=== PATIENT | male | born 1965 | race Caucasian/White ===

== ENCOUNTER → 2016-07-24 | Outpatient (CLI) | payer BC ==
--- NOTE | 2016-07-24 08:56 | CT ---
EXAMINATION TYPE: CT chest w con DATE OF EXAM: 07/24/2016 7:18 AM COMPARISON: NONE HISTORY: 50-year-old male Chest pain TECHNIQUE: Contiguous axial scanning of the chest after the administration of 100 ml mL of Omnipaque 300. Coronal/sagittal reconstructions performed. CT DLP: 346.90mGycm. Automatic exposure control utilized for a dose reduction. FINDINGS: The heart is normal size without pericardial effusion. Aorta is normal caliber with a conventional large vessel branching anatomy. No thoracic lymphadenopathy by CT size criteria. Evaluation of the lung shows mild dependent atelectasis no consolidation or pleural effusion. Visualized upper abdomen shows a small hiatal hernia. Bones: Mild degenerative disc disease throughout the thoracic spine. No osseous destructive process. IMPRESSION: No acute pulmonary process. Small hiatal hernia.
== END | disposition home or self-care (01) ==
LOC: RADCTMAIN 06:34
PROVIDERS: ATTEND Family Medicine
DX: R07.9 Chest pain, unspecified (principal); K44.9 Diaphragmatic hernia without obstruction or gangrene
CPT/HCPCS: 71260; Q9967

== ENCOUNTER 2017-03-07 13:06 | Inpatient (IN) | payer BC ==
[2017-03-07] MEDS ORDERED: ONDANSETRON 4 MG/2 ML VIAL IVP STA (14:11)
[2017-03-07] MEDS ORDERED: DIAZEPAM 5 MG/ML 2 ML INJ IVP STA (14:11)
[2017-03-07] MEDS ORDERED: MECLIZINE 12.5 MG TAB PO STA (14:11)
[2017-03-07] MEDS ORDERED: RX INFO: IV CONTRAST WAS GIVEN 1 EACH MISC MISCELLANE PRN (14:13)
[2017-03-07 14:49] LABS: Basophils % (A) 1 %; CH 30.9; CHCM 33.9; Eosinophils # (A) 0.1 k/uL (0-0.7); Eosinophils % (A) 3 %; HDW 2.38; HGB 16.5 gm/dL (13.0-17.5); Luc # (Auto) 0.12; Luc % (Auto) 2; Lymphocytes % (A) 20 %; MCH 30.6 pg (25.0-35.0); MCHC 33.6 g/dL (31.0-37.0); MCV 91.3 fL (80.0-100.0); Mean Platelet Volume 7.7; Monocytes # (A) 0.4 k/uL (0-1.0); Monocytes % (A) 7 %; Neutrophils # (A) 3.4 k/uL (1.3-7.7); Neutrophils % (A) 68 %; RBC 5.37 m/uL (4.30-5.90); RDW 12.9 % (11.5-15.5)
[2017-03-07 15:02] LABS: Anion Gap 14 mmol/L; Blood Urea Nitrogen 10 mg/dL (9-20); Calcium 9.2 mg/dL (8.4-10.2); Carbon Dioxide 21 mmol/L (22-30); Chloride 105 mmol/L (98-107); Glucose 87 mg/dL (74-99); Non-African American GFR(MDRD) >60 (>60 ml/min/1.73 sqM); Potassium 3.9 mmol/L (3.5-5.1); Sodium 140 mmol/L (137-145)
--- NOTE | 2017-03-07 15:02 | ED ---
General Adult HPI - General Chief complaint: Dizziness Stated complaint: Dizziness/Can't hear Time Seen by Provider: 03/07/17 13:28 Source: patient, RN notes reviewed, old records reviewed Mode of arrival: wheelchair Limitations: no limitations - History of Present Illness Initial comments: 51-year-old female male presents emergency Department chief complaint of hearing loss and dizziness. Patient reports that he's been diagnosed with Mni re's disease. He reports severe the bilateral ears. He reports his become acutely worse over the past few days, and his dizziness will not subside with Antivert. Patient reports he is supposed to follow-up with the ENT specialist in [facility]. Status post to be scheduled on March 29, but is becoming progressively worsening Freddy he he cannot wait that long. Patient states that originally the hearing loss was started in the right ear, but now is progressing to the left ear. He reports that he is having to lip read in order to be able to communicate with people.Patient denies any recent fever, chills, shortness of breath, chest pain, back pain, abdominal pain, nausea vomiting, numbness or tingling, dysuria or hematuria, constipation or diarrhea, headaches or visual changes, or any other current symptoms - Related Data Home Medications Medication Instructions Recorded Confirmed Dextroamphetamine/Amphetamine 20 mg PO BID 03/07/17 03/07/17 [Adderall] Montelukast [Singulair] 10 mg PO DAILY 03/07/17 03/07/17 Allergies Allergy/AdvReac Type Severity Reaction Status Date / Time No Known Allergies Allergy Verified 03/07/17 14:08 Review of Systems ROS Statement: Those systems with pertinent positive or pertinent negative responses have been documented in the HPI. ROS Other: All systems not noted in ROS Statement are negative. Past Medical History Past Medical History: No Reported History History of Any Multi-Drug Resistant Organisms: None Reported Past Surgical History: No Surgical Hx Reported Past Psychological History: No Psychological Hx Reported Smoking Status: Never smoker Past Alcohol Use History: Occasional Past Drug Use History: None Reported General Exam - General Exam Comments Initial Comments: 51-year-old male. Patient does not appear to be in any acute distress. Limitations: no limitations General appearance: alert, in no apparent distress Head exam: Present: atraumatic, normocephalic, normal inspection Eye exam: Present: normal appearance, PERRL, EOMI. Absent: scleral icterus, conjunctival injection, periorbital swelling ENT exam: Present: normal exam, normal oropharynx, mucous membranes moist, TM's normal bilaterally, other ( is lateral nystagmus with left -sided gaze.) Expanded Ear exam: Present: normal external inspection Mouth exam: Present: normal external inspection Teeth exam: Present: normal inspection Throat exam: normal inspection, tonsillar erythema Neck exam: Present: normal inspection. Absent: tenderness, meningismus, lymphadenopathy Respiratory exam: Present: normal lung sounds bilaterally. Absent: respiratory distress, wheezes, rales, rhonchi, stridor Cardiovascular Exam: Present: regular rate, normal rhythm, normal heart sounds. Absent: systolic murmur, diastolic murmur, rubs, gallop, clicks GI/Abdominal exam: Present: soft, normal bowel sounds. Absent: distended, tenderness, guarding, rebound, rigid Extremities exam: Present: normal inspection, full ROM, normal capillary refill. Absent: tenderness, pedal edema, joint swelling, calf tenderness Back exam: Present: normal inspection Neurological exam: Present: alert, oriented X3, CN II-XII intact Psychiatric exam: Present: normal affect, normal mood Skin exam: Present: warm, dry, intact, normal color. Absent: rash Course Vital Signs 03/07/17 03/07/17 13:12 15:55 Temperature 97.9 F Pulse Rate 76 74 Respiratory 18 16 Rate Blood Pressure 133/77 141/63 O2 Sat by Pulse 97 Oximetry Medical Decision Making - Medical Decision Making 51-year-old male presents with dizziness and and sudden hearing loss. Apparently the hearing loss has been present with past 3 weeks. The dizziness is some increasingly worse. Not managed with Antivert. at this time patient's CBC and BMP are within normal limits. State T brain without contrast shows no acute abnormalities. Patient continues to complain of dizziness like symptoms. He does have an appointment with an ENT specialist on March 29 patient felt like he could not wait until that time. He does not complain of any headache. Patient cases of with Dr. Aguilar. Do suspect an acoustic neuroma given the tinnitus, sudden hearing loss 3 weeks ago and profound dizziness. Patient has to lip read in order to be able to communicate. Patient will be admitted at this time for further evaluation including an MRI of the brain. Consult to neurology. Case discussed by Dr. Aguilar to Dr. Alvarenga. - Lab Data Result diagrams: 03/07/17 14:33 03/07/17 14:33 Lab Results 03/07/17 03/07/17 Range/Units 14:33 14:33 WBC 5.0 (3.8-10.6) k/uL RBC 5.37 (4.30-5.90) m/uL Hgb 16.5 (13.0-17.5) gm/dL Hct 49.0 (39.0-53.0) % MCV 91.3 (80.0-100.0) fL MCH 30.6 (25.0-35.0) pg MCHC 33.6 (31.0-37.0) g/dL RDW 12.9 (11.5-15.5) % Plt Count 214 (150-450) k/uL Neutrophils % 68 % Lymphocytes % 20 % Monocytes % 7 % Eosinophils % 3 % Basophils % 1 % Neutrophils # 3.4 (1.3-7.7) k/uL Lymphocytes # 1.0 (1.0-4.8) k/uL Monocytes # 0.4 (0-1.0) k/uL Eosinophils # 0.1 (0-0.7) k/uL Basophils # 0.0 (0-0.2) k/uL Sodium 140 (137-145) mmol/L Potassium 3.9 (3.5-5.1) mmol/L Chloride 105 (98-107) mmol/L Carbon Dioxide 21 L (22-30) mmol/L Anion Gap 14 mmol/L BUN 10 (9-20) mg/dL Creatinine 0.71 (0.66-1.25) mg/dL Est GFR (MDRD) Af Amer >60 (>60 ml/min/1.73 sqM) Est GFR (MDRD) Non-Af >60 (>60 ml/min/1.73 sqM) Glucose 87 (74-99) mg/dL Calcium 9.2 (8.4-10.2) mg/dL - Radiology Data Radiology results: report reviewed Negative head CT at exam. Disposition Clinical Impression: Vertigo, Nystagmus, Profound hearing loss of both ears Disposition: ADMITTED IP TO THIS [facility] Condition: Stable Referrals: Fan Lott MD [Primary Care Provider] - 1-2 days Time of Disposition: 16:26
[2017-03-07] MEDS ORDERED: SODIUM CHLORIDE 0.9% 1,000 ML IV ONE (15:11)
--- NOTE | 2017-03-07 15:39 | CT ---
EXAMINATION TYPE: CT brain wo/w con DATE OF EXAM: 03/07/2017 COMPARISON: NONE HISTORY: Dizziness and hearing loss CT DLP: 2144.6 mGycm Automated exposure control for dose reduction was used. CONTRAST: CT scan of the head is performed prior to and after administration 100 cc Omnipaque 350 IV contrast. FINDINGS: There is no abnormal enhancing mass or midline shift identified. The ventricles and sulci are within normal limits in size. The globes are intact and the visualized sinuses are clear. Ventricles and s ulci are age-appropriate. There is no abnormal enhancement. Mastoid air cells are well aerated. Aris rium is unremarkable. There is mild nasal septal deviation to the right. IMPRESSION: Negative contrast enhanced head CT exam.
[2017-03-07] MEDS ORDERED: ONDANSETRON 4 MG/2 ML VIAL IVP PRN (16:28)
[2017-03-07] MEDS ORDERED: IBUPROFEN 400 MG TAB PO PRN (16:28)
[2017-03-07] MEDS ORDERED: NALOXONE 0.4 MG/ML 1 ML VIAL IV PRN (16:28)
[2017-03-07] MEDS ORDERED: ACETAMINOPHEN TAB 325 MG TAB PO PRN (16:28)
[2017-03-07] MEDS ORDERED: LORazepam 2 MG/ML INJ IV PRN (16:28)
[2017-03-07] MEDS ORDERED: KETOROLAC 30 MG/ML 1 ML VIAL IVP PRN (16:28)
[2017-03-07] MEDS: SODIUM CHLORIDE 0.9% 1,000 ML IV SCH (16:35)
--- NOTE | 2017-03-07 22:37 | P.CNNES ---
History of Present Illness Consult date: 03/07/17 Reason for Consult: Patient with profound dizziness and hearing loss. History of Present Illness: This patient is a 51-year-old right-handed white male who came to the emergency room today with complaint of severe dizziness almost to the point of intractability as well as bilateral hearing loss. Patient states his symptoms have been progressing over the last 2 weeks. He has a known history of underlying Mnire's disease and does follow with a specialist in [place]. Apparently he was diagnosed about 2 years ago with this condition and uses Antivert when he has flareups. The patient states in the last 2 weeks he has had extreme intractable dizziness causing him to be very much off balance. He also has noted a significant decline in his hearing suddenly over the last 2 weeks. He is scheduled to see his ENT doctor only on March 29. Since his symptoms were worsening he came to the emergency room today for further evaluation. Patient states he has been able to keep up with his work routine and exercise programs but has noted a decline in the last 2 weeks. The patient states he has learned to manage in terms of his vertigo-like symptoms and ambulates very slowly. He has been experiencing increased nausea vomiting symptoms as well as some left-sided headache pain. He was seen in the emergency room by Dr. Aguilar. He was sent for a computed tomography scan of the brain with and without contrast which was reported negative contrast enhanced head CT. His hearing loss started mostly in the right ear but is now also affecting his left ear. He states at work he has to lipreading oftentimes as he is having worsening hearing loss. The patient denies any severe nausea vomiting symptoms at this time. We did review the computed tomography scan of the brain results with him in detail which came back negative for any acute changes. Patient is now admitted and neurology has been consulted for further evaluation and recommendations. Review of Systems Constitutional: Denies chills, Denies fever Eyes: denies blurred vision, denies pain Ears: bilateral: decreased hearing, tinnitus Ears, nose, mouth and throat: Denies headache, Denies sore throat Cardiovascular: Denies chest pain, Denies shortness of breath Respiratory: Denies cough Gastrointestinal: Denies abdominal pain, Denies diarrhea, Denies nausea, Denies vomiting Musculoskeletal: Denies myalgias Integumentary: Denies pruritus, Denies rash Neurological: Reports ataxia, Reports gait dysfunction, Reports lack of coordination, Reports vertigo, Denies numbness, Denies weakness Psychiatric: Denies anxiety, Denies depression Endocrine: Denies fatigue, Denies weight change Past Medical History Past Medical History: No Reported History History of Any Multi-Drug Resistant Organisms: None Reported Past Surgical History: No Surgical Hx Reported Additional Past Surgical History / Comment(s): hand surgeries, kidney stone removal Past Psychological History: No Psychological Hx Reported Smoking Status: Never smoker Past Alcohol Use History: Occasional Past Drug Use History: None Reported Medications and Allergies Home Medications Medication Instructions Recorded Confirmed Type Dextroamphetamine/Amphetamine 20 mg PO BID 03/07/17 03/07/17 History [Adderall] Montelukast [Singulair] 10 mg PO DAILY 03/07/17 03/07/17 History Allergies Allergy/AdvReac Type Severity Reaction Status Date / Time No Known Allergies Allergy Verified 03/07/17 14:08 Physical Examination - Vital Signs Vital Signs: Vital Signs Temp Pulse Pulse Resp BP BP Pulse Ox 03/07/17 18:05 97.3 F L 77 18 142/77 95 03/07/17 17:43 98.8 F 68 18 138/76 95 03/07/17 15:55 74 16 141/63 03/07/17 13:12 97.9 F 76 18 133/77 97 Intake and Output 03/07/17 03/07/17 03/07/17 06:59 14:59 22:59 Other: Weight 79.379 kg Patient Weight 03/08/17 06:59 Weight 79.379 kg - Constitutional General appearance: average body habitus, cooperative - EENT EENT: PERRL, mucous membranes moist - Respiratory Respiratory: lungs clear, normal breath sounds - Cardiovascular Cardiovascular: regular rate, normal S1, normal S2 Extremities: no peripheral edema bilaterally - Gastrointestinal Gastrointestinal: normoactive bowel sounds - Integumentary Integumentary: normal - Neurologic Cranial nerve examination: PERRL, EOMI, VFF, V1/V2/V3 grossly intact, face symmetric, intact gag reflex, intact corneal reflex, normal palatal elevation Speech examination: intact Sensorimotor examination: intact Detailed motor examination: grossly full strength in all extremities Motor examination - right side: 5/5: biceps, triceps, wrist flexion, wrist extension, produce manager, hip flexors, knee extensors, dorsiflexion, toe extension (EHL) , plantarflexion Motor examination - left side: 5/5: biceps, triceps, wrist flexion, wrist extension, produce manager, hip flexors, knee extensors, dorsiflexion, toe extension (EHL) , plantarflexion Detailed sensory examination: intact Reflex and gait examination: intact Reflexes: 1+: ankle, bicep, knee, tricep Cerebellar examination: dysmetria (There is slight dysmetria in the left lower extremity on [id number] testing.) - Musculoskeletal Musculoskeletal: no pain - Psychiatric Psychiatric: mood/affect appropriate, cooperative Results - Laboratory Findings CBC and BMP: 03/07/17 14:33 03/07/17 14:33 Abnormal Lab Findings: Abnormal Labs 03/07/17 14:33 Carbon Dioxide 21 L Assessment and Plan (1) Mnire's disease, active Current Visit: Yes Status: Acute SNOMED Code(s): 61786765 (2) Gait disturbance Current Visit: Yes Status: Acute SNOMED Code(s): 89940185 (3) Profound hearing loss of both ears Current Visit: Yes Status: Acute SNOMED Code(s): 36955090 (4) Vertigo Current Visit: Yes Status: Acute SNOMED Code(s): 972639712 Plan: This patient is a 51-year-old right-handed white male was admitted through the emergency room at [facility] today for evaluation of severe intractable vertigo and bilateral hearing loss. Patient has a known history of Mnire's disease which he states was diagnosed about 2 years ago. In the last 3 weeks he has noted profound hearing loss in both ears left greater than right. He has an appointment to see his ENT doctor on March 29. Apparently his symptoms worsen to the point that he came into the emergency room today for evaluation. He was seen in the ER by Dr. Aguilar. Computed tomography scan of the brain with and without contrast was performed and was negative. He was admitted to Hospital. His neurological examination at this time is nonfocal. His clinical history suggests worsening Mnire's disease. Doubt that he has acoustic neuroma but would suggest a MRI of the internal acoustic canal for further evaluation. We will obtain an ENT consultation for the patient as well. His overall prognosis at this time remains very guarded. We will continue to monitor his neurological status closely during this admission. Time with Patient: Greater than 30
[2017-03-07] MEDS: NON-FORMULARY DRUG (Dextroamphetamine/Amphetamine [Adderall] 20 MG) PO SCH (23:27)
[2017-03-08] MEDS: SODIUM CHLORIDE 0.9% 1,000 ML IV SCH ×2 (05:33→13:31)
[2017-03-08 07:38] VITALS: BP 117/67; PULSE 49; RESP 18; TEMP 96.9
--- NOTE | 2017-03-08 08:46 | MR ---
EXAMINATION TYPE: MR iac wo/w con DATE OF EXAM: 03/08/2017 COMPARISON: CT brain from yesterday HISTORY: Meniere's disease with worsening vertigo/hearing loss TECHNIQUE: Multiplanar, multisequence images of the brain and brainstem is performed without and with IV contras t, utilizing 7.5 mL intravenous Gadavist . Acoustic nerve disorder protocol. FINDINGS: Diffusion weighted images demonstrate no evidence of a recent infarct or other diffusion ab normality. There is no extra-axial fluid collection or significant white matter signal abnormality. The ventricular system and cisternal spaces are normal in size and appearance. The brain volume is age appropriate. Midline structures demonstrate normal morphology. The craniocervical junction appears within normal limits. The visualized sinuses are clear and the globes are intact bilaterally. No suspicious fluid signal is seen in mastoid air cells bilaterally. Vestibulocochlear complexes are symmetric and felt within normal limits. No suspicious enhancing cerebellopontine angle mass is ident ified bilaterally. IMPRESSION: No significant finding is seen to account for patient's symptoms of worsening vertigo and hearing loss.
[2017-03-08] MEDS: NON-FORMULARY DRUG (Dextroamphetamine/Amphetamine [Adderall] 20 MG) PO SCH (08:51)
[2017-03-08] MEDS ORDERED: PANTOPRAZOLE 40 MG/10 ML VIAL IV SCH (09:00)
[2017-03-08] MEDS ORDERED: MONTELUKAST 10 MG TAB PO SCH (09:00)
--- NOTE | 2017-03-08 22:53 | P.HPIM ---
History of Present Illness H&P Date: 03/08/17 Chief Complaint: Hearing loss and dizziness 51-year-old female male presents emergency Department chief complaint of hearing loss and dizziness. Patient reports that he's been diagnosed with Mni re's disease. He reports his become acutely worse over the past few days, and his dizziness will not subside with Antivert. Patient reports he is supposed to follow-up with the ENT specialist in [facility] scheduled on March 29 , but is becoming progressively worsening Freddy he he cannot wait that long. Patient states that originally the hearing loss was started in the right ear, but now is progressing to the left ear. He reports that he is having to lip read in order to be able to communicate with people.Patient denies any recent fever, chills, shortness of breath, chest pain, back pain, abdominal pain, nausea vomiting, numbness or tingling, dysuria or hematuria, constipation or diarrhea, headaches or visual changes, or any other current symptoms. Patient had CT head and MRI of the orbits face. Showed no acute changes. Review of Systems Constitutional: Patient denies any fever or chills . No generalized weakness or weight loss. Abdomen: Patient denied nausea vomiting and diarrhea and abdominal pain. Cardiovascular: Patient denies any chest pain or short of breath no palpitations. Respiratory: patient denied any cough is from production. No shortness of breath Neurologic: Hearing loss and dizziness. No headache. No weakness. Musculoskeletal: Patient denies any complaints of joint swelling or deformity. Skin: Negative Psychiatric: Negative Endocrine: No heat or cold intolerance. No recent weight gain. Genitourinary: No dysuria or hematuria. All other 14 point ROS negative except the above Past Medical History Past Medical History: No Reported History History of Any Multi-Drug Resistant Organisms: None Reported Past Surgical History: No Surgical Hx Reported Additional Past Surgical History / Comment(s): hand surgeries, kidney stone removal Past Psychological History: No Psychological Hx Reported Smoking Status: Never smoker Past Alcohol Use History: Occasional Past Drug Use History: None Reported Medications and Allergies Home Medications Medication Instructions Recorded Confirmed Type Dextroamphetamine/Amphetamine 20 mg PO BID 03/07/17 03/07/17 History [Adderall] Montelukast [Singulair] 10 mg PO DAILY 03/07/17 03/07/17 History Allergies Allergy/AdvReac Type Severity Reaction Status Date / Time No Known Allergies Allergy Verified 03/07/17 14:08 Physical Exam Vitals: Vital Signs Temp Pulse Pulse Resp BP BP Pulse Ox 03/08/17 07:00 96.9 F L 49 L 18 117/67 94 L 03/07/17 23:00 97.1 F L 62 16 122/68 93 L 03/07/17 18:05 97.3 F L 77 18 142/77 95 03/07/17 17:43 98.8 F 68 18 138/76 95 03/07/17 15:55 74 16 141/63 Intake and Output 03/07/17 03/08/17 03/08/17 22:59 06:59 14:59 Other: # Voids 1 2 2 PHYSICAL EXAMINATION: Patient is lying in the bed comfortably, no acute distress, awake alert and oriented.. HEENT: Normocephalic. Neck is supple. Pupils reactive. Nostrils clear. Oral cavity is moist. Ears reveal no drainage. Neck reveals no JVD, carotid bruits, or thyromegaly. CHEST EXAMINATION: Trachea is central. Symmetrical expansion. Lung mccall clear to auscultation and percussion. CARDIAC: Normal S1, S2 with no gallops. No murmurs ABDOMEN: Soft. Bowel sounds normal. No organomegaly. No abdominal bruits. Extremities: reveal no edema. No clubbing or cyanosis Neurologically awake, alert, oriented x3 with well-coordinated movements. Hearing loss left greater than right ear. No focal deficits noted Skin: No rash or skin lesions. Psychiatric: Operative. Nonsuicidal Musculoskeletal: No joint swelling or deformity. Normal range of motion. Results CBC & Chem 7: 03/07/17 14:33 03/07/17 14:33 Labs: Abnormal Lab Results - Last 24 Hours (Table) 03/07/17 Range/Units 14:33 Carbon Dioxide 21 L (22-30) mmol/L Thrombosis Risk Factor Assmnt - Choose All That Apply Each Factor Represents 1 point: Age 41-60 years Thrombosis Risk Factor Assessment Total Risk Factor Score: 1 Thrombosis Risk Factor Assessment Level: Low Risk Assessment and Plan Assessment: #1 hearing loss and dizziness. Likely due to worsening Mnire's disease. #2 rule out acoustic neuroma is unlikely #3 vertigo Plan: Patient is most likely having worsening Mnire's disease with hearing loss and dizziness and some ringing in the ear. Neurology has seen the patient. CT head showed no acute process MRI was ordered which did not show any acute changes suggestive of his symptoms. Patient was seen by ENT and recommends to follow-up as an outpatient.
--- NOTE | 2017-03-08 22:54 | P.DS ---
Providers Date of admission: 03/07/17 17:32 Expected date of discharge: 03/08/17 Attending physician: Anju Alvarenga Consults: 03/07/17 16:28 Consult Physician Stat Consulting Provider: Michaela Massey Consult Reason/Comments: Vertigo, Nystagmus, Acoustic Neuroma Do you want consulting provider notified?: Yes, Notify in am 03/08/17 08:00 Consult Physician Urgent Consulting Provider: Christiano Henry Consult Reason/Comments: Meniere's Disease and possible Acoustic Neuroma. Do you want consulting provider notified?: Yes Primary care physician: Fan Lott Hospital Course: Discharge diagnosis #1 hearing loss and dizziness. Likely due to worsening Mnire's disease. #2 ruled out acoustic neuroma. MRI negative #3 vertigo Hospital course Patient is most likely having worsening Mnire's disease with hearing loss and dizziness and some ringing in the ear. Neurology has seen the patient. CT head showed no acute process MRI was ordered which did not show any acute changes suggestive of his symptoms. Patient was seen by ENT and recommends to follow-up as an outpatient. Patient will be discharged home and to follow with ENT clinic is as an outpatient. Discharge physical examination was done Patient Condition at Discharge: Stable Plan - Discharge Summary New Discharge Prescriptions: Continue Montelukast [Singulair] 10 mg PO DAILY Dextroamphetamine/Amphetamine [Adderall] 20 mg PO BID Discharge Medication List Dextroamphetamine/Amphetamine [Adderall] 20 mg PO BID 03/07/17 [History] Montelukast [Singulair] 10 mg PO DAILY 03/07/17 [History] Follow up Appointment(s)/Referral(s): Fan Lott MD [Primary Care Provider] - 03/10/17 8:40 am Christiano Henry MD [STAFF PHYSICIAN] - 03/10/17 2:00 pm Patient Instructions/Handouts: Acoustic Neuroma (DC), Vertigo (DC) Discharge Disposition: HOME SELF-CARE
== END 2017-03-08 15:18 | disposition home or self-care (01) | DRG 149 ==
LOC: EC 13:06 → 4MS4W 17:32
PROVIDERS: ADMIT Internal Medicine; ATTEND Internal Medicine
DX: H81.03 Meniere's disease, bilateral (principal); H93.19 Tinnitus, unspecified ear; H91.93 Unspecified hearing loss, bilateral; Z79.899 Other long term (current) drug therapy; Z87.442 Personal history of urinary calculi
CPT/HCPCS: 36415; 70470; 70553; 80048; 85025; 96361; 96374; 96375; 99285

== ENCOUNTER 2019-04-06 12:38 | Emergency (ER) | payer BC ==
[2019-04-06 12:52] VITALS: RESP 18
[2019-04-06] MEDS ORDERED: SODIUM CHLORIDE 0.9% 1,000 ML IV STA (13:10)
[2019-04-06] MEDS ORDERED: ONDANSETRON 4 MG/2 ML VIAL IVP STA (13:25)
[2019-04-06] MEDS ORDERED: MORPHINE SULFATE 4 MG/ML SYRINGE IVP STA (13:25)
--- NOTE | 2019-04-06 13:28 | ED ---
General Adult HPI - General Chief complaint: Abdominal Pain Stated complaint: kidney stones Time Seen by Provider: 04/06/19 13:09 Source: patient, RN notes reviewed Mode of arrival: ambulatory Limitations: no limitations - History of Present Illness Initial comments: 53-year-old male presents to the emergency department for a chief complaint of left side and flank pain. This radiates into his left mid abdomen. States this started yesterday around 11 AM. States he saw his primary care provider and was diagnosed with a kidney stone. States he was told to come to the emergency department. States his pain has been constant. Denies any associated nausea vomiting. Denies any diarrhea. Denies fevers or chills. Denies dysuria.Patient has no other complaints at this time including shortness of breath, chest pain, nausea or vomiting, headache, or visual changes. - Related Data Home Medications Medication Instructions Recorded Confirmed Dextroamphetamine/Amphetamine 20 mg PO BID 03/07/17 03/07/17 [Adderall] Montelukast [Singulair] 10 mg PO DAILY 03/07/17 03/07/17 Previous Rx's Medication Instructions Recorded Ibuprofen [Motrin] 600 mg PO Q6HR PRN #20 tab 04/06/19 Allergies Allergy/AdvReac Type Severity Reaction Status Date / Time No Known Allergies Allergy Verified 04/06/19 12:52 Review of Systems ROS Statement: Those systems with pertinent positive or pertinent negative responses have been documented in the HPI. ROS Other: All systems not noted in ROS Statement are negative. Past Medical History Past Medical History: No Reported History Additional Past Medical History / Comment(s): kidney stones History of Any Multi-Drug Resistant Organisms: None Reported Past Surgical History: No Surgical Hx Reported Additional Past Surgical History / Comment(s): hand surgeries, kidney stone removal Past Psychological History: No Psychological Hx Reported Smoking Status: Never smoker Past Alcohol Use History: Occasional Past Drug Use History: None Reported General Exam Limitations: no limitations General appearance: alert, in no apparent distress Head exam: Present: atraumatic, normocephalic, normal inspection Eye exam: Present: normal appearance, PERRL, EOMI. Absent: scleral icterus, conjunctival injection, periorbital swelling ENT exam: Present: normal exam, mucous membranes moist Neck exam: Present: normal inspection, full ROM. Absent: tenderness, meningismus, lymphadenopathy Respiratory exam: Present: normal lung sounds bilaterally. Absent: respiratory distress, wheezes, rales, rhonchi, stridor Cardiovascular Exam: Present: regular rate, normal rhythm, normal heart sounds. Absent: systolic murmur, diastolic murmur, rubs, gallop, clicks GI/Abdominal exam: Present: soft, normal bowel sounds. Absent: distended, tenderness (Mild left upper and lower abdominal tenderness), guarding, rebound, rigid Back exam: Present: CVA tenderness (L). Absent: CVA tenderness (R) Neurological exam: Present: alert Course Vital Signs 04/06/19 12:50 Temperature 98.2 F Pulse Rate 53 L Respiratory 18 Rate Blood Pressure 134/71 O2 Sat by Pulse 97 Oximetry Medical Decision Making - Medical Decision Making CT abdomen and pelvis without contrast ordered outpatient today shows bilateral nephrolithiasis and medullary sponge kidney. There is no evident ureteral calculus. Diverticulosis. Physical exam and history of present illness as documented. Vitals are stable. CBC is unremarkable. CMP unremarkable as well. Urine does not show any significant abnormalities or evidence of infection. CT abdomen and pelvis without contrast was obtained outpatient. This was reviewed. Bilateral nephrolithiasis with possible medullary sponge kidney is evident. I'm not concerned for diverticulitis as patient did not have any evidence on CT and has no white blood cell count. Most the patient's pain is upper and flank in nature. Patient did have significant improvement with pain medication. I am al so going to give an additional dose of Toradol before discharge. Patient will follow up with primary care in 1-2 days. He will return here if he has any worsening symptoms. - Lab Data Result diagrams: 04/06/19 13:26 04/06/19 13:26 Lab Results 04/06/19 04/06/19 04/06/19 Range/Units 13:26 13:26 13:26 WBC 5.7 (3.8-10.6) k/uL RBC 4.95 (4.30-5.90) m/uL Hgb 15.8 (13.0-17.5) gm/dL Hct 45.7 (39.0-53.0) % MCV 92.3 (80.0-100.0) fL MCH 31.9 (25.0-35.0) pg MCHC 34.6 (31.0-37.0) g/dL RDW 12.8 (11.5-15.5) % Plt Count 226 (150-450) k/uL Neutrophils % 67 % Lymphocytes % 19 % Monocytes % 8 % Eosinophils % 3 % Basophils % 1 % Neutrophils # 3.8 (1.3-7.7) k/uL Lymphocytes # 1.1 (1.0-4.8) k/uL Monocytes # 0.4 (0-1.0) k/uL Eosinophils # 0.2 (0-0.7) k/uL Basophils # 0.1 (0-0.2) k/uL Sodium 140 (137-145) mmol/L Potassium 4.0 (3.5-5.1) mmol/L Chloride 108 H (98-107) mmol/L Carbon Dioxide 24 (22-30) mmol/L Anion Gap 8 mmol/L BUN 14 (9-20) mg/dL Creatinine 0.73 (0.66-1.25) mg/dL Est GFR (CKD-EPI)AfAm >90 (>60 ml/min/1.73 sqM) Est GFR (CKD-EPI)NonAf >90 (>60 ml/min/1.73 sqM) Glucose 82 (74-99) mg/dL Calcium 9.0 (8.4-10.2) mg/dL Total Bilirubin 1.5 H (0.2-1.3) mg/dL AST 23 (17-59) U/L ALT 29 (21-72) U/L Alkaline Phosphatase 66 (38-126) U/L Total Protein 6.8 (6.3-8.2) g/dL Albumin 3.9 (3.5-5.0) g/dL Amylase 121 H (30-110) U/L Lipase 114 (23-300) U/L Urine Color Yellow Urine Appearance Cloudy (Clear) Urine pH 7.0 (5.0-8.0) Ur Specific [place] 1.023 (1.001-1.035) Urine Protein 1+ H (Negative) Urine Glucose (UA) Negative (Negative) Urine Ketones Negative (Negative) Urine Blood Negative (Negative) Urine Nitrite Negative (Negative) Urine Bilirubin Negative (Negative) Urine Urobilinogen <2.0 (<2.0) mg/dL Ur Leukocyte Esterase Trace H (Negative) Urine RBC 1 (0-5) /hpf Urine WBC 5 (0-5) /hpf Ur Squamous Epith Cells <1 (0-4) /hpf Urine Mucus Few H (None) /hpf Disposition Clinical Impression: Renal colic on left side Disposition: HOME SELF-CARE Condition: Good Instructions (If sedation given, give patient instructions): Renal Colic (ED) Additional Instructions: Please take Motrin and Tylenol for pain. If pain is severe take Tylenol [address] operate machinery while taking this. He may take this every 8 hours as needed. Follow-up with urology by calling to schedule an appointment. Return to the emergency department if you have worsening symptoms. Prescriptions: Ibuprofen [Motrin] 600 mg PO Q6HR PRN #20 tab PRN Reason: Pain Is patient prescribed a controlled substance at d/c from ED?: No Referrals: Fan Lott MD [Primary Care Provider] - 1-2 days Patrick Davis MD [STAFF PHYSICIAN] - 1-2 days Time of Disposition: 14:51
[2019-04-06 14:08] LABS: Basophils # (A) 0.1 k/uL (0-0.2); Basophils % (A) 1 %; Eosinophils # (A) 0.2 k/uL (0-0.7); Eosinophils % (A) 3 %; HCT 45.7 % (39.0-53.0); HGB 15.8 gm/dL (13.0-17.5); Lymphocytes # (A) 1.1 k/uL (1.0-4.8); Lymphocytes % (A) 19 %; MCH 31.9 pg (25.0-35.0); MCHC 34.6 g/dL (31.0-37.0); MCV 92.3 fL (80.0-100.0); Mean Platelet Volume 6.8; Monocytes # (A) 0.4 k/uL (0-1.0); Monocytes % (A) 8 %; Neutrophils # (A) 3.8 k/uL (1.3-7.7); Neutrophils % (A) 67 %; Platelet Count 226 k/uL (150-450); RBC 4.95 m/uL (4.30-5.90); RDW 12.8 % (11.5-15.5); WBC 5.7 k/uL (3.8-10.6)
[2019-04-06 14:21] LABS: ALT 29 U/L (21-72); AST 23 U/L (17-59); African American GFR (CKD) >90 (>60 ml/min/1.73 sqM); Albumin 3.9 g/dL (3.5-5.0); Alkaline Phosphatase 66 U/L (38-126); Amylase 121 U/L (30-110); Anion Gap 8 mmol/L; Blood Urea Nitrogen 14 mg/dL (9-20); Carbon Dioxide 24 mmol/L (22-30); Chloride 108 mmol/L (98-107); Glucose 82 mg/dL (74-99); Non-African American GFR(CKD) >90 (>60 ml/min/1.73 sqM); Sodium 140 mmol/L (137-145); Total Bilirubin 1.5 mg/dL (0.2-1.3); Total Protein 6.8 g/dL (6.3-8.2)
[2019-04-06 14:26] LABS: Appearance,Urine Cloudy (Clear); Bilirubin,Urine Negative (Negative); Blood,Urine Negative (Negative); Color,Urine Yellow; Glucose,Urine (UA) Negative (Negative); Ketones,Urine Negative (Negative); Leukocyte Esterase,Urine Trace (Negative); Mucus,Urine Few /hpf; Nitrite,Urine Negative (Negative); Protein,Urine 1+ (Negative); RBC,Urine 1 /hpf (0-5); Specific Gravity,Urine 1.023 (1.001-1.035); Squamous Epithelial Cell,Urine <1 /hpf (0-4); Urobilinogen,Urine <2.0 mg/dL (<2.0)
[2019-04-06] MEDS ORDERED: KETOROLAC 30 MG/ML 1 ML VIAL IVP STA (14:45)
[2019-04-06] MEDS ORDERED: ACET/COD 300 MG/30 MG STARTER PACK 6 TAB BTL PO STA (14:51)
[2019-04-06 14:57] VITALS: BP 135/81; PULSE 50; TEMP 97.9
== END 2019-04-06 15:05 | disposition home or self-care (01) ==
LOC: EC 12:38
DX: N20.0 Calculus of kidney (principal); K57.90 Diverticulosis of intestine, part unspecified, without perforation or abscess without bleeding; Z79.899 Other long term (current) drug therapy; Z98.890 Other specified postprocedural states
CPT/HCPCS: 36415; 80053; 82150; 83690; 85025; 81001; 99284; 96374; 96375 ×2; 96361 ×2; J2270; J2405; J1885

== ENCOUNTER → 2019-04-06 | Outpatient (CLI) | payer BC ==
--- NOTE | 2019-04-06 11:29 | CT ---
EXAMINATION TYPE: CT abdomen pelvis wo con DATE OF EXAM: 04/06/2019 COMPARISON: Prior CT dated 07/28/2013 HISTORY: Left sided back pain, kidney stone CT DLP: 755 mGycm Automated exposure control for dose reduction was used. TECHNIQUE: Helical acquisition of images from the lung bases through the pelvis. FINDINGS: Lack of intravenous contrast could compromise sensitivity of the exam. LUNG BASES: There are basilar atelectatic changes. Small hiatal hernia noted incidentally. AORTA: No significant abnormality is appreciataed. LIVER/GB: No significant abnormality is appreciated. PANCREAS: No significant abnormality is seen. SPLEEN: No significant abnormality is seen. ADRENALS: No significant abnormality is seen. KIDNEYS: There are changes of medullary sponge kidney. Nonobstructive calculus present at the lower p ole right kidney measuring approximately 3 to 4 mm, similar-appearing calculus is present the lower p ole the left kidney REPRODUCTIVE ORGANS: Prostate is mildly enlarged with some associated calcification. URINARY BLADDER: Urinary bladder shows a thickened wall possibly due to chronic outlet obstruction, there is a focus of low-attenuation in the nondependent portion of the prostate, possibly fat density and stable compared to prior exam BOWEL: Diverticular changes associated with the colon. There is retained fecal debris throughout the distribution of the colon. No evident bowel obstruction. Appendix is within normal limits.. FREE AIR: No Free Air is visible. ASCITES: None visible. PELVIC ADENOPATHY: None visualized. RETROPERITONEAL ADENOPATHY: No Retroperitoneal Adenopathy visible. OSSEOUS STRUCTURES: No significant abnormality is seen. IMPRESSION: BILATERAL NEPHROLITHIASIS, MEDULLARY SPONGE KIDNEY. NO EVIDENT URETERAL CALCULUS. DIVERTICULOSIS. NON CONTRAST EXAM, ADDITIONAL FINDINGS ABOVE.
== END | disposition home or self-care (01) ==
LOC: RADCTMAIN 10:31
PROVIDERS: ATTEND Physician Assistant
DX: N20.0 Calculus of kidney (principal); K57.90 Diverticulosis of intestine, part unspecified, without perforation or abscess without bleeding
CPT/HCPCS: 74176

== ENCOUNTER 2020-03-07 12:46 | Emergency (ER) | payer BC, OTHER ==
[2020-03-07 12:52] VITALS: BP 125/81; PULSE 82; RESP 18; TEMP 97.9
[2020-03-07] MEDS ORDERED: IBUPROFEN 600 MG TAB PO STA (13:04)
--- NOTE | 2020-03-07 13:16 | ED ---
General Adult HPI - General Chief complaint: Back Pain/Injury Stated complaint: [facility] - broken ribs Time Seen by Provider: 03/07/20 12:55 Source: patient, RN notes reviewed Mode of arrival: ambulatory Limitations: no limitations - History of Present Illness Initial comments: This a 54-year-old male presents emergency Department chief complaint left-sided rib pain. 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 Patient states he has left-sided rib pain worse with movement and deep inspiration. She does not feel short of breath at rest. Patient states that the pain worsened throughout the day he did complete his day work. Patient states that he has no exact back pain no head injury no loss consciousness no neck pain. Patient states he does not taking for the pain does not want narcotic pain meds. - Related Data Home Medications Medication Instructions Recorded Confirmed Dextroamphetamine/Amphetamine 20 mg PO BID 03/07/17 03/07/17 [Adderall] Montelukast [Singulair] 10 mg PO DAILY 03/07/17 03/07/17 Previous Rx's Medication Instructions Recorded Ibuprofen [Motrin] 600 mg PO Q6HR PRN #20 tab 04/06/19 Ibuprofen [Motrin] 600 mg PO Q8HR PRN #20 tab 03/07/20 Allergies Allergy/AdvReac Type Severity Reaction Status Date / Time No Known Allergies Allergy Verified 03/07/20 12:52 Review of Systems ROS Statement: Those systems with pertinent positive or pertinent negative responses have been documented in the HPI. ROS Other: All systems not noted in ROS Statement are negative. Past Medical History Past Medical History: No Reported History Additional Past Medical History / Comment(s): kidney stones History of Any Multi-Drug Resistant Organisms: None Reported Past Surgical History: No Surgical Hx Reported Additional Past Surgical History / Comment(s): hand surgeries, kidney stone removal Past Psychological History: No Psychological Hx Reported Smoking Status: Never smoker Past Alcohol Use History: Occasional Past Drug Use History: None Reported General Exam Limitations: no limitations General appearance: alert, in no apparent distress Head exam: Present: atraumatic, normocephalic, normal inspection Eye exam: Present: normal appearance, PERRL, EOMI. Absent: scleral icterus, conjunctival injection, periorbital swelling Neck exam: Present: normal inspection, full ROM. Absent: tenderness, meningismus, lymphadenopathy Respiratory exam: Present: normal lung sounds bilaterally, chest wall tenderness (Moderate left sided anterior lateral). Absent: respiratory distress, wheezes, rales, rhonchi, stridor Cardiovascular Exam: Present: regular rate, normal rhythm, normal heart sounds. Absent: systolic murmur, diastolic murmur, rubs, gallop, clicks Neurological exam: Present: alert, oriented X3, CN II-XII intact, reflexes normal. Absent: motor sensory deficit Skin exam: Present: warm, dry, intact, normal color. Absent: rash Course Vital Signs 03/07/20 12:48 Temperature 97.9 F Pulse Rate 82 Respiratory 18 Rate Blood Pressure 125/81 O2 Sat by Pulse 97 Oximetry Medical Decision Making - Medical Decision Making 54-year-old presented for fall x-rays reviewed no acute fracture per radiology reading. No pneumothorax. Patient is left rib contusion possible nondisplaced identified fracture. Patient will be discharged on anti-inflammatories return parameters were discussed. Disposition Clinical Impression: Fall, Contusion of rib on left side Disposition: HOME SELF-CARE Condition: Stable Instructions (If sedation given, give patient instructions): Rib Contusion (ED) Additional Instructions: Please return to the Emergency Department if symptoms worsen or any other concerns. Prescriptions: Ibuprofen [Motrin] 600 mg PO Q8HR PRN #20 tab PRN Reason: Pain Is patient prescribed a controlled substance at d/c from ED?: No Referrals: Fan Lott MD [Primary Care Provider] - 1-2 days Time of Disposition: 13:32
--- NOTE | 2020-03-07 13:26 | XR ---
EXAMINATION TYPE: PA chest and left rib series, 5 views DATE OF EXAM: 03/07/2020 Comparison: 08/16/2013 Clinical History: 54-year-old male with pain after fall Findings: Heart normal size. Aorta and pulmonary vasculature within normal limits. Mild interstitial prominence is unchanged and appears chronic. No displaced left rib fracture. Moderate degenerative change at the left glenohumeral joint. Impression: Chronic changes without acute cardiopulmonary process. No displaced left rib fracture seen.
== END 2020-03-07 13:57 | disposition home or self-care (01) ==
LOC: EC 12:46
DX: S20.212A Contusion of left front wall of thorax, initial encounter (principal); Z79.899 Other long term (current) drug therapy; W01.0XXA Fall on same level from slipping, tripping and stumbling without subsequent striking against object, initial encounter; Y92.69 Other specified industrial and construction area as the place of occurrence of the external cause; Y99.0 Civilian activity done for income or pay
CPT/HCPCS: 99283

== ENCOUNTER → 2020-03-15 | Outpatient (CLI) | payer OTHER ==
--- NOTE | 2020-03-15 14:40 | XR ---
EXAMINATION TYPE: XR chest 2V, XR ribs LT DATE OF EXAM: 03/15/2020 COMPARISON: Chest and left-sided rib x-rays 8 days ago. HISTORY: Fall injury 8 days ago with persistent chest and left-sided rib pain. TECHNIQUE: Frontal and lateral views of the chest are obtained. A frontal and oblique images left-si ded ribs. FINDINGS: There is chronic parenchymal changes bilaterally without suspicious new focal air space op acity, pleural effusion, or pneumothorax seen. The cardiac silhouette size remains within normal padilla its. The osseous structures are intact. Dedicated images of the left-sided ribs show acute minimally displaced anterolateral left eighth rib fracture which I cannot clearly identify on prior study. The overlying soft tissue is unremarkable. IMPRESSION: 1. No acute pulmonary process. 2. Acute minimally displaced left anterolateral eighth rib fracture on current study which I cannot c learly see on prior study.
== END | disposition home or self-care (01) ==
LOC: RADXRMAIN 14:10
PROVIDERS: ATTEND Emergency Medicine
DX: S29.011D Strain of muscle and tendon of front wall of thorax, subsequent encounter (principal)
CPT/HCPCS: 71046

== ENCOUNTER → 2020-04-15 | Outpatient (CLI) | payer BC | END | disposition home or self-care (01) | LOC: LABWHC1 15:40 | PROVIDERS: ATTEND Family Medicine | DX: Z03.818 Encounter for observation for suspected exposure to other biological agents ruled out (principal) | CPT/HCPCS: U0003; C9803 ==

== ENCOUNTER → 2020-07-08 | Outpatient (CLI) | payer BC ==
--- NOTE | 2020-07-08 11:54 | EST ---
EXERCISE STRESS AGE: 54 SEX: M HT: 5'11" WT: 171 lbs. PROTOCOL: Exercise tolerance test STAGE: 5 DURATION OF EXERCISE: 12:30 HEART RATE REST: 74 BLOOD PRESSURE REST: 134/89 MAXIMUM HEART RATE ACHIEVED: 149 MAXIMUM BLOOD PRESSURE: 161/104 85% MPHR: 141 100% MPHR: 166 METS: 12.9 INDICATIONS: Hypertension CLINICAL INFORMATION: Baseline EKG shows sinus rhythm, normal axis, normal intervals with poor R-wave progression and nonspecific ST-T wave changes. Patient exercised on Landon protocol for a total of 12-1/2 minutes achieving 14 METS, 90% of predicted maximal heart rate without chest pain. At peak exercise there was [address]-segment depression noted in the inferolateral leads. CONCLUSIONS: 1. Excellent exercise tolerance. 2. Abnormal but inconclusive EKG part of the stress test due to baseline EKG abnormalities. 3. Consider stress imaging study if clinically indicated. MMODL / IJN: [id number] /
== END | disposition home or self-care (01) ==
LOC: RADNMMAIN 08:22
PROVIDERS: ATTEND Family Medicine
DX: R94.31 Abnormal electrocardiogram [ECG] [EKG] (principal); R03.0 Elevated blood-pressure reading, without diagnosis of hypertension
CPT/HCPCS: 93017

== ENCOUNTER 2022-05-04 09:14 | Day surgery (SDC) | payer BC ==
[2022-05-01 10:09] VITALS: BMI 25.1
--- NOTE | 2022-05-04 07:18 | P.GSHP ---
History of Present Illness H&P Date: 05/04/22 CHIEF COMPLAINT: Colon screen HISTORY OF PRESENT ILLNESS: The patient is a 56-year-old male who presents for colon screen. Lower endoscopy was offered for further evaluation and management. PAST MEDICAL HISTORY: Please see list. PAST SURGICAL HISTORY: Please see list. MEDICATIONS: Please see list. ALLERGIES: Please see list. SOCIAL HISTORY: No illicit drug use FAMILY HISTORY: No reports of Crohn disease or ulcerative colitis. REVIEW OF ORGAN SYSTEMS: CONSTITUTIONAL: No reports of fevers or chills. PHYSICAL EXAM: VITAL SIGNS: Stable GENERAL: Well-developed pleasant in no acute distress. HEENT: No scleral icterus. Extraocular movements grossly intact. Moist buccal mucosa. NECK: Supple without lymphadenopathy. CHEST: Unlabored respirations. Equal bilateral excursions. CARDIOVASCULAR: Regular rate and rhythm. Distal 2+ pulses. ABDOMEN: Soft, nontender, nondistended. MUSCULOSKELETAL: No clubbing, cyanosis, or edema. ASSESSMENT: 1. Colon screen. PLAN: 1. Recommend proceeding with a lower endoscopy Past Medical History Past Medical History: No Reported History Additional Past Medical History / Comment(s): kidney stones, right shoulder injury with possible biceps tear, seasonal allergies History of Any Multi-Drug Resistant Organisms: None Reported Past Surgical History: No Surgical Hx Reported Additional Past Surgical History / Comment(s): right hand surgeries, kidney stone removal, right toe surgey Past Anesthesia/Blood Transfusion Reactions: No Reported Reaction, Motion Sickness Smoking Status: Never smoker Medications and Allergies Home Medications Medication Instructions Recorded Confirmed Type Ibuprofen [Motrin] 600 mg PO Q6HR PRN #20 tab 04/06/19 05/01/22 Rx Allergies Allergy/AdvReac Type Severity Reaction Status Date / Time No Known Allergies Allergy Verified 05/01/22 10:02
[2022-05-04] MEDS ORDERED: LACTATED RINGERS 1,000 ML IV ONE (09:29)
[2022-05-04 09:37] VITALS: TEMP 97.3
[2022-05-04] MEDS ORDERED: LIDOCAINE 1% (10MG/ML) FOR IV START INTRADERMA PRN (09:37)
[2022-05-04] MEDS ORDERED: LACTATED RINGERS 1,000 ML IV SCH (09:37)
--- NOTE | 2022-05-04 10:41 | P.PCN ---
Date of Procedure: 05/04/22 Description of Procedure: PREOPERATIVE DIAGNOSIS: Colonoscopy screening POSTOPERATIVE DIAGNOSIS: Tubular adenoma transverse colon Sigmoid diverticulosis Internal hemorrhoids, grade 2 OPERATION: Colonoscopy to the ileocecal valve and appendiceal orifice, cecum Colonoscopy with cold forceps biopsy SURGEON: Acacia Miller MD. ANESTHESIA: MAC. INDICATIONS: The patient is an 56-year-old male who presents for colonoscopy screening. Benefits and risks were described and informed consent was obtained. DESCRIPTION OF PROCEDURE: The patient had undergone Sutab prep. The patient had been brought into the operating room and laid in the left lateral decubitus position. After adequate intravenous sedation, the rectum was examined with 2% lidocaine jelly. The prostate was unremarkable. External hemorrhoids were encountered. The rectal tone was within normal limits. No lesions were palpated in the rectal vault. An Olympus colonoscope was advanced until the cecum, ileocecal valve and appendiceal orifice were clearly viewed. The prep was excellent. No sigmoid diverticulosis was encountered. Colonic polyps were found and removed. No evidence of focal colitis was found. Retroflexion of the scope demonstrated grade 2 internal hemorrhoids without active bleeding or inflammation. The colon was desufflated. The patient had tolerated the procedure well. Withdrawal time was over 6 minutes. FINDINGS: Aronchick preparation quality scale 1 (1-5) Internal hemorrhoids, grade 2 External hemorrhoids, grade 2. No arteriovenous malformations. Sigmoid diverticulosis Removal of 2 polyps: - Cold forceps biopsy at mid transverse colon, 5 mm polyp. No focal colitis. RECOMMENDATIONS: Repeat colonoscopy , 2026 Plan - Discharge Summary New Discharge Prescriptions: Continue Ibuprofen [Motrin] 600 mg PO Q6HR PRN #20 tab PRN Reason: Pain Discharge Medication List Ibuprofen [Motrin] 600 mg PO Q6HR PRN #20 tab 04/06/19 [Rx] Follow up Appointment(s)/Referral(s): Acacia Miller MD [STAFF PHYSICIAN] - As Needed Patient Instructions/Handouts: Diverticulitis Diet (GEN), Diverticulosis (DC), Colorectal Polyps (GEN) Activity/Diet/Wound Care/Special Instructions: Repeat colonoscopy years, 2026 Discharge Disposition: HOME SELF-CARE
[2022-05-04 10:50] VITALS: BP 144/84; PULSE 54; RESP 16
== END 2022-05-04 11:11 | disposition home or self-care (01) ==
LOC: ORWHC2ENDO 09:14
PROVIDERS: ATTEND Surgery Plastic and Reconstructive Surgery
DX: Z12.11 Encounter for screening for malignant neoplasm of colon (principal); D12.3 Benign neoplasm of transverse colon; K57.30 Diverticulosis of large intestine without perforation or abscess without bleeding; K64.1 Second degree hemorrhoids; K64.4 Residual hemorrhoidal skin tags; Z87.442 Personal history of urinary calculi; Z79.1 Long term (current) use of non-steroidal anti-inflammatories (NSAID)
CPT/HCPCS: 45380; 88305

== ENCOUNTER 2024-02-24 16:44 | Observation (INO) | payer BC ==
[2024-02-24 17:13] LABS: Glucose,Whole Blood 80 mg/dL (70-110)
[2024-02-24 17:21] LABS: Basophils % (A) 1 %; Eosinophils # (A) 0.2 k/uL (0-0.7); Eosinophils % (A) 3 %; HCT 50.2 % (39.0-53.0); HGB 16.5 gm/dL (13.0-17.5); Lymphocytes # (A) 1.3 k/uL (1.0-4.8); Lymphocytes % (A) 24 %; MCH 30.4 pg (25.0-35.0); MCHC 32.8 g/dL (31.0-37.0); MCV 92.6 fL (80.0-100.0); Mean Platelet Volume 8.4; Monocytes # (A) 0.5 k/uL (0-1.0); Monocytes % (A) 9 %; Neutrophils # (A) 3.2 k/uL (1.3-7.7); Neutrophils % (A) 59 %; Platelet Count 216 k/uL (150-450); RBC 5.42 m/uL (4.30-5.90); WBC 5.4 k/uL (3.8-10.6)
--- NOTE | 2024-02-24 17:32 | CT ---
EXAMINATION TYPE: CODE STROKE: CT brain wo contr DATE OF EXAM: 02/24/2024 COMPARISON: 03/07/2017 HISTORY: 58-year-old male neurologic deficit, acute, cva suspected. TECHNIQUE: Examination was done in axial plane without intravenous contrast. Coronal and sagittal r econstructions performed. CT DLP: 1092.3 mGycm Automated exposure control for dose reduction was used. FINDINGS: There is no evidence of acute intracranial hemorrhage, acute ischemic changes, mass, mass-effect, or extra-axial fluid collection. There is no effacement of cerebral sulci or basal subarachnoid cister ns. There is no hydrocephalus. There is no midline shift. Toure-white matter distinction is preserv ed. Mild bifrontal cerebral cortical volume loss. Paranasal sinuses and mastoid air cells well pneumatized. Orbits and globes are intact. IMPRESSION: Mild bifrontal cerebral atrophy. No acute intracranial abnormality seen. [facility], , 02/24/2024 5:29 PM
[2024-02-24 17:42] LABS: ALT 28 U/L (4-49); AST 35 U/L (17-59); African American GFR (CKD) >90 (>60 ml/min/1.73 sqM); Albumin 4.6 g/dL (3.5-5.0); Alkaline Phosphatase 74 U/L (38-126); Anion Gap 6 mmol/L; Blood Urea Nitrogen 9 mg/dL (9-20); Calcium 9.3 mg/dL (8.4-10.2); Carbon Dioxide 27 mmol/L (22-30); Chloride 107 mmol/L (98-107); Creatine Kinase 139 U/L (55-170); Glucose 85 mg/dL (74-99); Non-African American GFR(CKD) >90 (>60 ml/min/1.73 sqM); Potassium 4.7 mmol/L (3.5-5.1); Sodium 140 mmol/L (137-145); Total Bilirubin 1.1 mg/dL (0.2-1.3); Total Protein 7.4 g/dL (6.3-8.2)
--- NOTE | 2024-02-24 17:44 | CT ---
EXAMINATION TYPE: CT angio head neck DATE OF EXAM: 02/24/2024 COMPARISON: CT brain same day HISTORY: 58-year-old male with neurologic deficit, acute, cva suspected. TECHNIQUE: Contiguous axial scanning of the head and neck performed with IV Contrast, patient injecte d with 65 mL of Isovue 370. Coronal/sagittal reconstructions performed. 3-D reconstructions generated on a dedicated workstation. CT DLP: 437.4 mGycm Automated exposure control for dose reduction was used. FINDINGS: NECK: Conventional arch was a branching anatomy. The vertebral arteries are codominant and patent throughout the course. The bilateral common bilateral internal carotid arteries are widely patent without any significant at herosclerotic change. NASCET criteria was utilized. HEAD: The vertebral arteries are patent. There may be a short fenestration of the distal V4 segment right v ertebral artery. The basilar artery is patent. There is anatomic variation of a persistent orig in right posterior cerebral artery. Posterior circulation otherwise patent. The bilateral internal carotid arteries and remainder of the anterior circulation is patent. The A1 s egment left JESUS is slightly hypoplastic. No discrete aneurysmal change is identified. IMPRESSION: 1. NECK: WIDELY PATENT VERTEBRAL AND CAROTID ARTERIES OF THE NECK. 2. HEAD: NO LARGE VESSEL INTRACRANIAL ARTERIAL OCCLUSION, SIGNIFICANT STENOSIS, OR ANEURYSMAL CHANGE IS SEEN. [facility], , 02/24/2024 5:34 PM
[2024-02-24 17:54] LABS: INR 0.8 (<1.2); Partial Thromboplastin Time 24.2 sec (22.0-30.0); Prothrombin Time 9.6 sec (10.0-12.5)
[2024-02-24 18:01] LABS: Appearance,Urine Clear (Clear); Bilirubin,Urine Negative (Negative); Blood,Urine Negative (Negative); Color,Urine Colorless; Glucose,Urine (UA) Negative (Negative); Ketones,Urine Negative (Negative); Leukocyte Esterase,Urine Negative (Negative); Nitrite,Urine Negative (Negative); Protein,Urine Negative (Negative); Specific Gravity,Urine 1.005 (1.001-1.035); Urobilinogen,Urine <2.0 mg/dL (<2.0)
[2024-02-24] MEDS: ASPIRIN 325 MG TAB PO STA (18:29)
--- NOTE | 2024-02-24 18:34 | XR ---
EXAMINATION TYPE: XR chest 2V DATE OF EXAM: 02/24/2024 COMPARISON: 03/15/2020 HISTORY: 58-year-old male confusion, altered mental status TECHNIQUE: PA and lateral views FINDINGS: The cardiomediastinal silhouette, aorta, and pulmonary vasculature are within normal limits. Lungs an d pleural spaces are clear. There is a rounded 2.7 cm density projecting at the right perimedian uppe r abdomen. IMPRESSION: 1. No acute cardiopulmonary process. 2. A 2.7 cm rounded density projecting in the right paramedian upper abdomen. Unclear if this represe nts a large gallstone or renal stone or ingested material. Clinically correlate. [facility], , 02/24/2024 6:32 PM
--- NOTE | 2024-02-24 18:46 | ED ---
General Adult HPI - General Chief complaint: Neuro Symptoms/Deficit Stated complaint: dizzy, numbness Time Seen by Provider: 02/24/24 17:00 Source: patient, RN notes reviewed, old records reviewed Mode of arrival: wheelchair Limitations: no limitations - History of Present Illness Initial comments: Is a 58-year-old male who presents emergency department for strokelike symptoms. States that approximately noon today he began having slurred speech and has noticed some paresthesias and numbness on the left side of his body. States his slurred speech has since resolved but is still having the numbness on the left side of his body. Was having numbness in the left face as well as leg in addition arm. Now only feels it in the arm he states. Denies any other symptoms. Denies any history of strokes. Denies any history of hypertension. Takes no medications at home. Patient states the symptoms resolved on its own. The dysarthria seem to last for a minute at most. Continue to work and presented after he got off his work. Patient presented at approximately 5 PM. States symptoms started at approximately noon.Denies any trauma. Is not on blood thinners. Denies any headaches. Has no other acute complaints at this time. Presents for the neurological deficits which are improving. - Related Data Home Medications Medication Instructions Recorded Confirmed No Known Home Medications 02/24/24 02/24/24 Allergies Allergy/AdvReac Type Severity Reaction Status Date / Time No Known Allergies Allergy Verified 02/24/24 18:13 Review of Systems ROS Statement: Those systems with pertinent positive or pertinent negative responses have been documented in the HPI. Review of Systems: CONST: Denies fever EYES: Denies blurry vision ENT: Denies nasal congestion C/V: Denies Chest pain RESP: Denies shortness of breath GI: Denies abdominal pain : Denies dysuria SKIN: Denies rash. MSK: Denies joint pain. NEURO: Denies headache ROS Other: All systems not noted in ROS Statement are negative. Past Medical History Past Medical History: No Reported History Additional Past Medical History / Comment(s): kidney stones, right shoulder injury with possible biceps tear, seasonal allergies History of Any Multi-Drug Resistant Organisms: None Reported Past Surgical History: No Surgical Hx Reported Additional Past Surgical History / Comment(s): right hand surgeries, kidney stone removal, right toe surgey Past Anesthesia/Blood Transfusion Reactions: No Reported Reaction, Motion Sickness Past Psychological History: ADD/ADHD Smoking Status: Never smoker Past Alcohol Use History: Occasional Past Drug Use History: None Reported General Exam - General Exam Comments Initial Comments: General: Appears in no acute distress. HEAD: Normal with no signs of head trauma. EYES: PERRLA, EOMI, conjunctiva normal, no discharge. Pupils are 3 mm and equal bilaterally. ENT: Hearing grossly intact, normal oropharynx. RESPIRATORY: Clear breath sounds bilaterally. No wheezes, rales, or rhonchi. C/V: Regular rate and rhythm. S1 and S2 auscultated, no edema, peripheral pulses 2+ and intact throughout ABD: Abd is soft, nontender, nondistended EXT: Normal range of motion, no obvious deformity SKIN: No rashes or lesions observed on exposed skin. NEURO: Alert and oriented x 4. NIH of 1 for mild sensory deficits.. Last known well was 1200. Limitations: no limitations Course Vital Signs 02/24/24 02/24/24 02/24/24 16:50 16:54 18:28 Temperature 97.8 F Pulse Rate 64 68 48 L Respiratory 18 16 20 Rate Blood Pressure 133/86 136/86 139/87 O2 Sat by Pulse 95 98 96 Oximetry Medical Decision Making - Medical Decision Making Was pt. sent in by a medical professional or institution (ELIER Fuentes, SHOW WORKER, urgent care, hospital, or long-term...) When possible be specific @ -No Did you speak to anyone other than the patient for history (EMS, parent, family, police, friend...)? What history was obtained from this source @ -No Did you review nursing and triage notes (agree or disagree)? Why? @ -I reviewed and agree with nursing and triage notes Were old charts reviewed (outside hosp., previous admission, EMS record, old EKG, old radiological studies, urgent care reports/EKG's, long-term records)? Report findings @ -Reviewed prior stress test and stress EKG to compare to today's EKG. No obvious acute changes. This from June 2020. Differential Diagnosis (chest pain, altered mental status, abdominal pain women, abdominal pain men, vaginal bleeding, weakness, fever, dyspnea, syncope, headache, dizziness, GI bleed, back pain, seizure, CVA, palpatations, mental health, musculoskeletal)? @ -Differential CVA Ischemic stroke, hemorrhagic stroke, brain tumor, atypical migraine, Wernicke's encephalopathy, seizure, multiple sclerosis, meningitis, encephalitis, hypoglycemia, Guillain-De León, electrolytes disturbance, myasthenia gravis.... This is not meant to be an all-inclusive list EKG interpreted by me (3pts min.). @ -As above X-rays interpreted by me (1pt min.). @ -Chest x-ray reveals no obvious acute cardiopulmonary process. CT interpreted by me (1pt min.). @ -CT brain, CTA head and neck negative for any obvious acute intracranial p rocess. No evidence of large vessel occlusion. Patient does have some atrophy of the bifrontal cerebral cortex. U/S interpreted by me (1pt. min.). @ -None done What testing was considered but not performed or refused? (CT, X-rays, U/S, labs)? Why? @ -None What meds were considered but not given or refused? Why? @ -Considered thrombolytics however patient is outside of the window and risks far outweigh the benefits as patient has low NIH. He also has improving symptoms. Did you discuss the management of the patient with other professionals (professionals i.e. , PA, SHOW WORKER, lab, RT, psych nurse, health care social worker, pouncing lathe operator, teacher, weapons electrical engineering officer, caser up)? Give summary @ -Contact neurocritical care, Dr. Benton who did not return multiple pages. I spoke with the admitting provider, Dr. Soler of [facility] accepted the admission. Was smoking cessation discussed for >3mins.? @ -No Was critical care preformed (if so, how long)? @ -Yes, 32 minutes Were there social determinants of health that impacted care today? How? (Homelessness, low income, unemployed, alcoholism, drug addiction, t ransportation, low edu. Level, literacy, decrease access to med. care, usp, rehab)? @ -No Was there de-escalation of care discussed even if they declined (Discuss DNR or withdrawal of care, Hospice)? DNR status @ -No What co-morbidities impacted this encounter? (DM, HTN, Smoking, COPD, CAD, Cance r, CVA, ARF, Chemo, Hep., AIDS, mental health diagnosis, sleep apnea, morbid obesity)? @ -None Was patient admitted / discharged? Hospital course, mention meds given and route, prescriptions, significant lab abnormalities, going to OR and other pertinent info. @ -Based on the patient's presentation and physical exam, presents with strokelike symptoms. Originally had dysarthria in addition to left-sided sensory deficits however dysarthria is improved and resolved. NIH is currently 1. Last known well was noon. It is currently 5 PM. He is outside of the window for thrombolytics, and risks far outweigh the benefits due to being outside the window, low NIH score. Therefore patient will not be provided these. He was in agreement this plan. Patient was made a code stroke. EKG showed no signs of acute ischemia. Laboratory studies are unremarkable. CT imaging negative for any obvious acute findings. CT angiogram also negative for any obvious acute findings. Chest x-ray shows no obvious acute cardiopulmonary process. Multiple attempts to contact Dr. Benton of neurocrit care however he did not call back. On reevaluation, patient has resolution of symptoms. NIH is currently 0. I recommend admission for TIA workup. He was in agreement this plan. Patient given 325 mg of aspirin. I consulted neurology Dr. Rae. I spoke with the admitting provider, Dr. Soler who accepted the admission. Undiagnosed new problem with uncertain prognosis? @ -No Drug Therapy requiring intensive monitoring for toxicity (Heparin, Nitro, Insulin, Cardizem)? @ -No Were any procedures done? @ -No Diagnosis/symptom? @ -TIA Acute, or Chronic, or Acute on Chronic? @ -Acute Uncomplicated (without systemic symptoms) or Complicated (systemic symptoms)? @ -Complicated Side effects of treatment? @ -No Exacerbation, Progression, or Severe Exacerbation? @ -No Poses a threat to life or bodily function? How? (Chest pain, USA, OR, pneumonia, PE, COPD, DKA, ARF, appy, cholecystitis, CVA, Diverticulitis, Homicidal, Suicidal, threat to staff... and all critical care pts) @ -Potentially, yes - Lab Data Result diagrams: 02/24/24 17:12 02/24/24 17:12 Lab Results 02/24/24 02/24/24 02/24/24 Range/Units 17:08 17:12 17:12 WBC 5.4 (3.8-10.6) k/uL RBC 5.42 (4.30-5.90) m/uL Hgb 16.5 (13.0-17.5) gm/dL Hct 50.2 (39.0-53.0) % MCV 92.6 (80.0-100.0) fL MCH 30.4 (25.0-35.0) pg MCHC 32.8 (31.0-37.0) g/dL RDW 13.0 (11.5-15.5) % Plt Count 216 (150-450) k/uL MPV 8.4 Neutrophils % 59 % Lymphocytes % 24 % Monocytes % 9 % Eosinophils % 3 % Basophils % 1 % Neutrophils # 3.2 (1.3-7.7) k/uL Lymphocytes # 1.3 (1.0-4.8) k/uL Monocytes # 0.5 (0-1.0) k/uL Eosinophils # 0.2 (0-0.7) k/uL Basophils # 0.0 (0-0.2) k/uL PT 9.6 L (10.0-12.5) sec INR 0.8 (<1.2) APTT 24.2 (22.0-30.0) sec Sodium (137-145) mmol/L Potassium (3.5-5.1) mmol/L Chloride (98-107) mmol/L Carbon Dioxide (22-30) mmol/L Anion Gap mmol/L BUN (9-20) mg/dL Creatinine (0.66-1.25) mg/dL Est GFR (CKD-EPI)AfAm (>60 ml/min/1.73 sqM) Est GFR (CKD-EPI)NonAf (>60 ml/min/1.73 sqM) Glucose (74-99) mg/dL POC Glucose (mg/dL) 80 (70-110) mg/dL POC Glu Oscillograph Technician ID [place] Calcium (8.4-10.2) mg/dL Total Bilirubin (0.2-1.3) mg/dL AST (17-59) U/L ALT (4-49) U/L Alkaline Phosphatase (38-126) U/L Creatine Kinase (55-170) U/L Total Protein (6.3-8.2) g/dL Albumin (3.5-5.0) g/dL Urine Color Urine Appearance (Clear) Urine pH (5.0-8.0) Ur Specific [place] (1.001-1.035) Urine Protein (Negative) Urine Glucose (UA) (Negative) Urine Ketones (Negative) Urine Blood (Negative) Urine Nitrite (Negative) Urine Bilirubin (Negative) Urine Urobilinogen (<2.0) mg/dL Ur Leukocyte Esterase (Negative) 02/24/24 02/24/24 Range/Units 17:12 17:42 WBC (3.8-10.6) k/uL RBC (4.30-5.90) m/uL Hgb (13.0-17.5) gm/dL Hct (39.0-53.0) % MCV (80.0-100.0) fL MCH (25.0-35.0) pg MCHC (31.0-37.0) g/dL RDW (11.5-15.5) % Plt Count (150-450) k/uL MPV Neutrophils % % Lymphocytes % % Monocytes % % Eosinophils % % Basophils % % Neutrophils # (1.3-7.7) k/uL Lymphocytes # (1.0-4.8) k/uL Monocytes # (0-1.0) k/uL Eosinophils # (0-0.7) k/uL Basophils # (0-0.2) k/uL PT (10.0-12.5) sec INR (<1.2) APTT (22.0-30.0) sec Sodium 140 (137-145) mmol/L Potassium 4.7 (3.5-5.1) mmol/L Chloride 107 (98-107) mmol/L Carbon Dioxide 27 (22-30) mmol/L Anion Gap 6 mmol/L BUN 9 (9-20) mg/dL Creatinine 0.79 (0.66-1.25) mg/dL Est GFR (CKD-EPI)AfAm >90 (>60 ml/min/1.73 sqM) Est GFR (CKD-EPI)NonAf >90 (>60 ml/min/1.73 sqM) Glucose 85 (74-99) mg/dL POC Glucose (mg/dL) (70-110) mg/dL POC Glu Oscillograph Technician ID Calcium 9.3 (8.4-10.2) mg/dL Total Bilirubin 1.1 (0.2-1.3) mg/dL AST 35 (17-59) U/L ALT 28 (4-49) U/L Alkaline Phosphatase 74 (38-126) U/L Creatine Kinase 139 (55-170) U/L Total Protein 7.4 (6.3-8.2) g/dL Albumin 4.6 (3.5-5.0) g/dL Urine Color Colorless Urine Appearance Clear (Clear) Urine pH 7.0 (5.0-8.0) Ur Specific [place] 1.005 (1.001-1.035) Urine Protein Negative (Negative) Urine Glucose (UA) Negative (Negative) Urine Ketones Negative (Negative) Urine Blood Negative (Negative) Urine Nitrite Negative (Negative) Urine Bilirubin Negative (Negative) Urine Urobilinogen <2.0 (<2.0) mg/dL Ur Leukocyte Esterase Negative (Negative) - EKG Data -: EKG Interpreted by Me EKG Comments: 12-lead Electrocardiogram Interpretation Note EKG was reviewed and interpreted by myself. 12-lead ECG performed at 1706 is interpreted by me as revealing sinus bradycardia at a rate of 52 beats per minute. [place] is normal. RI interval is 168 ms, QRS duration is 100 ms, QTc is 398 ms.. There were no ST or T wave abnormalities to suggest myocardial ischemia or injury. R wave progression across the precordium was satisfactory. By my interpretation this EKG is non-diagnostic for acute ischemia. Critical Care Time Critical Care Time: Yes Total Critical Care Time: 32 Disposition Clinical Impression: TIA (transient ischemic attack) Disposition: ADMITTED IP TO THIS HOSP Condition: Stable Time of Disposition: 18:45
[2024-02-25 08:50] LABS: LDL Cholesterol,Calculated 109.7 mg/dL (0.0-131.0)
[2024-02-25] MEDS: ASPIRIN 325 MG TAB PO SCH (09:49)
[2024-02-25 09:59] LABS: Magnesium 2.2 mg/dL (1.6-2.3)
--- NOTE | 2024-02-25 12:24 | CA ---
Transthoracic Echo Report Name: Lux Kapoor Age: 58 Gender: M : 1965 Exam Date: 02/25/2024 11:31 Exam Location: [facility] Ht (in): 71 Wt (lb): 180 Ordering Physician: Serge Scruggs MD Attending/Referring Phys: Rolloff Driver Tanisha Spicer RDCS Procedure CPT: Indications: CVA/TIA Cardiac Hx: Technical Quality: Fair Contrast 1: Agitated Saline Total Dose (mL): 2 Contrast 2: Total Dose (mL): MEASUREMENTS (Male / Female) Normal Values 2D ECHO LV Diastolic Diameter PLAX 5.0 cm 4.2 - 5.9 / 3.9 - 5.3 cm LV Systolic Diameter PLAX 3.1 cm IVS Diastolic Thickness 0.9 cm 0.6 - 1.0 / 0.6 - 0.9 cm LVPW Diastolic Thickness 1.0 cm 0.6 - 1.0 / 0.6 - 0.9 cm LV Relative Wall Thickness 0.4 LVOT Diameter 2.3 cm LV Diastolic Volume MOD BP 149.8 cm??? 67 - 155 / 56 - 104 cm??? LV Systolic Volume MOD BP 56.8 cm??? 22 - 58 / 19 - 49 cm??? LV Ejection Fraction MOD BP 62.1 % >= 55 % LV Cardiac Index MOD BP 2472.2 cm???/min???m??? LV Diastolic Volume MOD 4C 147.0 cm??? LV Systolic Volume MOD 4C 59.6 cm??? LV Ejection Fraction MOD 4C 59.5 % LV Cardiac Index MOD 4C 2324.7 cm???/min???m??? LV Diastolic Length 4C 9.3 cm LV Systolic Length 4C 7.2 cm LV Diastolic Volume MOD 2C 147.8 cm??? LV Systolic Volume MOD 2C 50.8 cm??? LV Ejection Fraction MOD 2C 65.6 % LV Cardiac Index MOD 2C 2578.8 cm???/min???m??? LV Diastolic Length 2C 9.6 cm LV Systolic Length 2C 7.8 cm LA Volume 43.6 cm??? 18 - 58 / 22 - 52 cm??? LA Volume Index 21.5 cm???/m??? 16 - 28 cm???/m??? Ascending Aorta Diameter 3.5 cm DOPPLER AV Peak Velocity 132.0 cm/s AV Peak Gradient 7.0 mmHg AV Mean Velocity 87.9 cm/s AV Mean Gradient 3.5 mmHg AV Velocity Time Integral 25.9 cm LVOT Peak Velocity 107.0 cm/s LVOT Peak Gradient 4.6 mmHg LVOT Velocity Time Integral 22.3 cm LVOT Stroke Volume 95.7 cm??? LVOT Stroke Volume Index 47.5 ml/m??? LVOT Cardiac Index 2545.3 cm???/min???m??? AV Area Cont Eq vti 3.7 cm??? AV Area Cont Eq pk 3.5 cm??? MV Area PHT 3.1 cm??? Mitral E Point Velocity 75.2 cm/s Mitral A Point Velocity 44.6 cm/s Mitral E to A Ratio 1.7 MV Deceleration Time 246.0 ms TR Peak Velocity 224.1 cm/s TR Peak Gradient 20.1 mmHg Right Atrial Pressure 5.0 mmHg Pulmonary Artery Systolic Pressu 25.1 mmHg Right Ventricular Systolic Press 25.1 mmHg PV Peak Velocity 119.8 cm/s PV Peak Gradient 5.7 mmHg FINDINGS Left Ventricle Left ventricular ejection fraction is estimated at 55-60 %. Left ventricular cavity size normal. Left ventricular wall thickness normal. No obvious regional wall motion abnormalities. Right Ventricle Normal right ventricular size and function. Right ventricular systolic pressure within normal limits. Right Atrium Normal right atrial size. Negative agitated saline bubble study for right to left shunt. Left Atrium Normal left atrial size. No patent foramen ovale. Mitral Valve Structurally normal mitral valve. No mitral stenosis, regurgitation or prolapse. Aortic Valve Trileaflet aortic valve. No aortic valve stenosis or regurgitation. Tricuspid Valve Structurally normal tricuspid valve. No tricuspid stenosis. Trace to mild tricuspid regurgitation. Pulmonic Valve Pulmonic valve not well visualized. No pulmonic stenosis. Trace pulmonic regurgitation. Pericardium No pericardial effusion. Aorta Normal size aortic root and proximal ascending aorta. CONCLUSIONS 1. Normal left ventricular size and systolic function 2. Trace to mild tricuspid regurgitation with trace pulmonic regurgitation 3. No evidence of shunting by contrast bubble study or color study Previewed by: Dr. Tristan Siddiqui MD (Electronically Signed) Final Date: 25 February 2024 12:23
[2024-02-25] MEDS: ACETAMINOPHEN TAB 325 MG TAB PO PRN (12:40)
--- NOTE | 2024-02-25 13:56 | P.HPIM ---
History of Present Illness H&P Date: 02/25/24 Chief Complaint: TIA Patient is a 58-year-old male with no reported medical history presenting with stroke-like symptoms. He states he felt numbness and tingling on his face, tongue, and arm down to his hand at around noon yesterday. Patient also noticed some slurred speech. Patient reports the symptoms last less than 30 minutes. Decided to go to the ED around 5 PM. When seen patient states his symptoms has resolved. He reports he has never had a history of stroke or TIA before. Patient denies any fever, chills, headache, lightheadedness, nausea, vomiting, chest pain, shortness of breath, abdominal pain. EKG independently interpreted displays sinus bradycardia, rate 52 bpm, QTc 398 ms. CXR independently interpreted displays no acute cardiopulmonary process Brain CT displays mild bifrontal cerebral cortical atrophy, no acute intracranial abnormality seen Angiography CT displays neck: Widely patent vertebral and carotid arteries of neck, head: No large vessel intracranial arterial occlusion, significant stenosis or aneurysmal changes seen CBC all WNL Hgb 16.5, WBC 5.4, platelet 266; PT 9.6, APTT 24.2, INR 0.8, sodium 140, potassium 4.7, creatinine 0.78, glucose 85, creatine kinase 139 UA displayed no signs of UTI, negative ketones, negative protein, negative blood Temp 97.8 F, IA 53, RR 18, BP 125/78, O2 sat 98% room ED documentation reviewed. Review of systems: Pertinent positives and negatives as discussed in HPI, a complete review of systems was performed and all other systems are negative. Social history: Tobacco: Never smoker Alcohol: Occasional Recreational drugs: Denies illicit drug Physical examination: Vital signs reviewed General: non toxic, no distress, appears at stated age, normal weight Derm: no unusual rashes/lesions, warm Head: atraumatic, normocephalic, symmetric Eyes: EOMI, anicteric sclera, pupils equal round reactive to light ENT: Nose and ears atraumatic Neck: No cervical lymphadenopathy, trachea midline, supple Mouth: no lip lesion, mucus membranes moist Cardiovascular: S1S2 reg, no murmur, positive dorsalis pedis pulse bilateral, no edema Lungs: CTA bilateral, no rhonchi, no rales, no accessory muscle use Abdominal: soft, nontender to palpation, no guarding Ext: muscle strength 5 out of 5 in all 4 extremities grossly, no gross muscle atrophy Neuro: CN II-XI grossly intact, no gross focal neuro deficits Psych: Alert, oriented to person, place, and time Assessment/Plan: Patient is a 58-year-old male with no reported medical history presenting with strokelike symptoms. #. TIA/CVA NIHSS score 1 ==> 0 ABCD2 score of 1 presents him as a low two-day stroke risk (1%) EKG independently interpreted displays sinus bradycardia, rate 52 bpm, QTc 398 ms. CXR independently interpreted displays no acute cardiopulmonary process Brain CT displays mild bifrontal cerebral cortical atrophy, no acute intracranial abnormality seen Angiography CT displays neck: Widely patent vertebral and carotid arteries of neck, head: No large vessel intracranial arterial occlusion, significant stenosis or aneurysmal changes seen Echocardiogram displayed normal left ventricular size and systolic function, ejection fraction 55 to 60%, mild tricuspid regurgitation with trace pulmonic regurgitation, no evidence of shunting by bubble study or color study Neurochecks Patient currently on aspirin 325 mg p.o. daily Troponin, TSH, hemoglobin A1c, B12, folate, lipid panel ordered MRI brain pending Cardiac monitoring Neurology consulted #. Bradycardia Patient asymptomatic Patient reports he works out often, likely to be physiological F: N/A E: Replete as needed N: Regular A: Ambulatory DVT prophylaxis: SCDs The patient is admitted with an anticipated less than 2 midnight stay for evaluation of TIA/CVA. CODE STATUS: Full code Discussed with: Patient Anticipated discharge place: Home Patient seen and evaluated by me independently. Patient was also seen by GEE, the original author of this note. I am in agreement with the subjective, physical exam, and assessment and plan as documented with the addition/changes of my exam and assessment below. Elia John Past Medical History Past Medical History: No Reported History Additional Past Medical History / Comment(s): kidney stones, right shoulder in jury with possible biceps tear, seasonal allergies History of Any Multi-Drug Resistant Organisms: None Reported Past Surgical History: No Surgical Hx Reported Additional Past Surgical History / Comment(s): right hand surgeries, kidney stone removal, right toe surgey Past Anesthesia/Blood Transfusion Reactions: No Reported Reaction, Motion Sickness Past Psychological History: ADD/ADHD Smoking Status: Never smoker Past Alcohol Use History: Occasional Past Drug Use History: None Reported Medications and Allergies Home Medications Medication Instructions Recorded Confirmed Type No Known Home Medications 02/24/24 02/24/24 History Allergies Allergy/AdvReac Type Severity Reaction Status Date / Time No Known Allergies Allergy Verified 02/24/24 18:13 Physical Exam Vitals: Vital Signs Temp Pulse Resp BP Pulse Ox 02/25/24 05:04 53 L 18 125/78 98 02/25/24 01:45 60 18 136/75 97 02/25/24 00:13 58 L 18 136/74 96 02/24/24 21:25 52 L 18 140/80 97 02/24/24 18:28 48 L 20 139/87 96 02/24/24 16:54 68 16 136/86 98 02/24/24 16:50 97.8 F 64 18 133/86 95 Intake and Output 02/24/24 02/25/24 02/25/24 22:59 06:59 14:59 Other: Weight 81.647 kg Results CBC & Chem 7: 02/24/24 17:12 02/24/24 17:12 Labs: Abnormal Lab Results - Last 24 Hours (Table) 02/24/24 Range/Units 17:12 PT 9.6 L (10.0-12.5) sec
--- NOTE | 2024-02-25 16:03 | P.CNNES ---
History of Present Illness Consult date: 02/25/24 Requesting physician: Lux Cruz Reason for Consult: tia History of Present Illness: This is a 57-year-old gentleman who presented emergency department because of left facial numbness as well as tongue numbness. Patient noticed the symptoms yesterday at 1 to 2 PM and had 2 episode and there were brief in which he felt the left side of the tongue and face were numb and he felt mild slurring the speech. He denies any similar episodes like this before. Denies any associated weakness, visual disturbance, difficulty swallowing. He feels back to baseline. Hard of hearing and he wears a hearing aid he denies having any health issues and is not on any medication. Denies any tobacco use or illicit drug use. He socially drinks alcohol. Some of the workup during this hospital visit consisted of: CBC with differential is unremarkable Serum glucose is 85. Macario panel is unremarkable Lipid panel is triglyceride 118, cholesterol 194, LDL is 109 and HDL 60 TSH is 1.[address] is 5.[address]. [address] of the head is reported as mild bifrontal cerebral atrophy. No acute intracranial abnormality seen. I personally reviewed the CT and agree with the report. CT angiography of the neck is reported as widely patent vertebral and carotid artery of the neck. CT angiography of the head is reported as no large vessel intracranial arterial occlusion, significant stenosis or aneurysm changes seen. Review of Systems The positive and negative as per HPI. Past Medical History Past Medical History: No Reported History Additional Past Medical History / Comment(s): kidney stones, right shoulder injury with possible biceps tear, seasonal allergies History of Any Multi-Drug Resistant Organisms: None Reported Past Surgical History: No Surgical Hx Reported Additional Past Surgical History / Comment(s): right hand surgeries, kidney stone removal, right toe surgey Past Anesthesia/Blood Transfusion Reactions: No Reported Reaction, Motion Sickness Past Psychological History: ADD/ADHD Smoking Status: Never smoker Past Alcohol Use History: Occasional Past Drug Use History: None Reported Medications and Allergies Home Medications Medication Instructions Recorded Confirmed Type No Known Home Medications 02/24/24 02/24/24 History Allergies Allergy/AdvReac Type Severity Reaction Status Date / Time No Known Allergies Allergy Verified 02/24/24 18:13 Physical Examination - Vital Signs Vital Signs: Vital Signs Temp Pulse Pulse Resp BP BP Pulse Ox 02/25/24 07:00 97.8 F 56 L 18 117/71 95 02/25/24 05:04 53 L 18 125/78 98 02/25/24 01:45 60 18 136/75 97 02/25/24 00:13 58 L 18 136/74 96 02/24/24 21:25 52 L 18 140/80 97 02/24/24 18:28 48 L 20 139/87 96 02/24/24 16:54 68 16 136/86 98 02/24/24 16:50 97.8 F 64 18 133/86 95 Intake and Output 02/25/24 02/25/24 02/25/24 06:59 14:59 22:59 Intake Total 240 240 Balance 240 240 Intake: Oral 240 240 Other: # Voids 1 Weight 81.647 kg GENERAL: The patient is lying in bed and is not in acute distress. NEUROLOGICAL: Higher mental function: The patient is awake, alert, oriented to self, place and time. Patient is following commands. No aphasia and no neglect. Cranial nerves: The pupils are round, equal and reactive to light and accommodation. Visual mccall are full to confrontation throughout. Extraocular movement is intact no nystagmus is noted. Facial sensation is normal to touch throughout. The facial strength is normal throughout. Hearing is severely dec reased bilaterally to hand rub. Tongue is midline and moved [id number] without any difficulty. No dysarthria is noted. Shoulder shrug is normal bilaterally. Motor: The strength is 5 over 5 throughout. Normal tone and bulk. Cerebellum: Normal finger to nose heel to shannon bilaterally. Sensation: Sensation is normal to touch throughout. Reflexes (right/left): 2+ throughout. Plantars are downgoing bilaterally. Results - Laboratory Findings CBC and BMP: 02/24/24 17:12 02/24/24 17:12 Abnormal Lab Findings: Abnormal Labs 02/24/24 02/25/24 17:12 02:34 PT 9.6 L HDL Cholesterol 60.70 H Assessment and Plan Assessment: This is a 58-year-old gentleman who is severely hard of hearing and wears hearing aids who presented emergency department because of 2 episode of numbness over the left tongue as well as face with some slurring of the speech to happen yesterday in the afternoon. He stated the episodes were brief. He is back to baseline. Likely transient ischemic attack Severely hard of hearing and is on hearing aids Plan: Patient was given aspirin 325 once in the ED then was started on aspirin 325 daily by the ED physician. Patient was not on any antiplatelet prior to this. I changed to aspirin 325 to 81 mg and I also added Plavix 75 mg daily. Patient to be on dual antiplatelet for 21 days and after 21 days stop Plavix but continue aspirin indefinitely. I started the patient on Lipitor 20 mg nightly for secondary stroke prophylaxis. MRI of the brain is ordered by the primary team is pending The echo is ordered and is pending I ordered Vitamin B12. Continue neurochecks Cardiac monitoring PT OT and ROLLED HAM LACER are consulted For DVT prophylaxis: Patient is ambulatory and does not need anticoagulation. Will defer the rest of the medical management to primary and other specialist Thank you for the consultation. Time with Patient: Greater than 30
[2024-02-25] MEDS: CLOPIDOGREL 75 MG TAB PO SCH (16:34)
[2024-02-25] MEDS: ATORVASTATIN 20 MG TAB PO SCH (20:45)
--- NOTE | 2024-02-26 00:10 | MR ---
EXAMINATION TYPE: MR brain wo con DATE OF EXAM: 02/25/2024 9:25 PM CLINICAL INDICATION:Male, 58 years old with history of TIA; PHH, TIA. COMPARISON: 02/24/2024 CT/CTA. TECHNIQUE: Multi planar, multi sequence imaging was performed through the brain including: T1, T2, In version recovery, Diffusion weighted imaging, and gradient echo imaging. No gadolinium was given. FINDINGS: The cerda-white junctions, ventricular system, and cisterns appear unremarkable. A couple foci of hig h T2 signal intensity are seen within the periventricular white matter. Midline structures show no ab normality. Diffusion-weighted imaging shows no evidence of restricted diffusion. The susceptibility w eighted images do not reveal any evidence for micro-hemorrhage. The bone marrow signal is within normal limits. Paranasal sinuses and mastoid air cells: No significant paranasal sinus disease. Visualized orbits: Orbital contents are intact. IMPRESSION: 1. No evidence of intracranial mass or acute/subacute infarct. 2. Nonspecific white matter changes, likely secondary to minor small vessel ischemic disease. [facility], , 02/26/2024 12:08 AM
[2024-02-26 07:24] VITALS: BP 127/75; PULSE 48; RESP 15; TEMP 98.7
[2024-02-26] MEDS: ASPIRIN 81 MG PO SCH (08:41)
--- NOTE | 2024-02-26 13:22 | P.DS ---
Providers Date of admission: 02/24/24 18:46 Discharge Diagnosis: TIA/CVA Bradycardia Hospital Course: Patient is a 58-year-old male with no reported medical history presenting with stroke-like symptoms. He states he felt numbness and tingling on his face, tongue, and arm down to his hand at around noon yesterday. Patient also noticed some slurred speech. Patient reports the symptoms last less than 30 minutes. Decided to go to the ED around 5 PM. When seen patient states his symptoms has resolved. He reports he has never had a history of stroke or TIA before. Patient denies any fever, chills, headache, lightheadedness, nausea, vomiting, chest pain, shortness of breath, abdominal pain. EKG independently interpreted displays sinus bradycardia, rate 52 bpm, QTc 398 ms CXR independently interpreted displays no acute cardiopulmonary process Brain CT displays mild bifrontal cerebral cortical atrophy, no acute intracranial abnormality seen Angiography CT displays neck: Widely patent vertebral and carotid arteries of neck, head: No large vessel intracranial arterial occlusion, significant stenosis or aneurysmal changes seen CBC all WNL Hgb 16.5, WBC 5.4, platelet 266; PT 9.6, APTT 24.2, INR 0.8, sodium 140, potassium 4.7, creatinine 0.78, glucose 85, creatine kinase 139 UA displayed no signs of UTI, negative ketones, negative protein, negative blood Temp 97.8 F, SC 53, RR 18, BP 125/78, O2 sat 98% room Patient admitted for further evaluation of TIA/CVA. 02/26/2024: Patient seen and examined at bedside. No overnight events. No acute complaints. Brain MRI displayed no acute. Patient will follow-up with neurologist and PCP. He is required to take aspirin and Plavix for the next 21 days. Followed by taking aspirin indefinitely. Patient is also required to take Lipitor 20 mg indefinitely. He is being discharged home. Vital signs reviewed and stable. Physical examination: Vital signs reviewed General: non toxic, no distress, appears at stated age, normal weight Derm: no unusual rashes/lesions, warm Head: atraumatic, normocephalic, symmetric Eyes: EOMI, anicteric sclera, pupils equal round reactive to light ENT: Nose and ears atraumatic Neck: No cervical lymphadenopathy, trachea midline, supple Mouth: no lip lesion, mucus membranes moist Cardiovascular: S1S2 reg, no murmur, positive dorsalis pedis pulse bilateral, no edema Lungs: CTA bilateral, no rhonchi, no rales, no accessory muscle use Abdominal: soft, nontender to palpation, no guarding Ext: muscle strength 5 out of 5 in all 4 extremities grossly, no gross muscle atrophy Neuro: CN II-XI grossly intact, no gross focal neuro deficits Psych: Alert, oriented to person, place, and time A total of greater than 30 minutes of time were spent preparing this complex discharge summary. Patient was discharge on February 26, 2024 at 11:28 AM. Attestation I have seen and examined this patient with my resident , discussed the same with the resident/GEE, and agree with the dictator's assessment and plan as written Dr. Elia john Expected date of discharge: 02/26/24 Attending physician: Elia John MD Consults: 02/24/24 18:45 Consult Physician Routine Consulting Provider: Jose Rae Consult Reason/Comments: TIA Do you want consulting provider notified?: Yes Primary care physician: Fan Lott Patient Condition at Discharge: Stable Plan - Discharge Summary Discharge Rx Participant: No New Discharge Prescriptions: New Aspirin 81 mg PO DAILY 30 Days #30 tab Atorvastatin [Lipitor] 20 mg PO HS 30 Days #30 tablet Clopidogrel [Plavix] 75 mg PO DAILY 21 Days #21 tablet Discharge Medication List Aspirin 81 mg PO DAILY 30 Days #30 tab 02/26/24 [Rx] Atorvastatin [Lipitor] 20 mg PO HS 30 Days #30 tablet 02/26/24 [Rx] Clopidogrel [Plavix] 75 mg PO DAILY 21 Days #21 tablet 02/26/24 [Rx] Follow up Appointment(s)/Referral(s): Fan Lott MD [Primary Care Provider] - 1-2 days Jose Rae MD [STAFF PHYSICIAN] - 1 Week Activity/Diet/Wound Care/Special Instructions: continue aspirin plavix for 21 days. followed by aspirin indefinitely Discharge Disposition: HOME SELF-CARE
--- NOTE | 2024-02-26 15:03 | P.PN ---
Subjective Progress Note Date: 02/26/24 I am following up with the patient and he feels back to baseline. Denies any new neurological issues. Objective - Vital Signs Vital signs: Vital Signs Temp 98.7 F 02/26/24 07:00 Pulse 48 L 02/26/24 07:00 Resp 15 02/26/24 07:00 BP 127/75 02/26/24 07:00 Pulse Ox 100 02/26/24 07:00 FiO2 Intake & Output 02/25/24 02/26/24 02/26/24 18:59 06:59 18:59 Intake Total 240 118 Balance 240 118 Weight 80.8 kg Intake: Oral 240 118 Other: # Voids 3 2 - Exam GENERAL: The patient is lying in bed and is not in acute distress. NEUROLOGICAL: Higher mental function: The patient is awake, alert, oriented to self, place and time. Patient is following commands. No aphasia and no neglect. Cranial nerves: The pupils are round, equal and reactive to light and accommodation. Visual mccall are full to confrontation throughout. Extraocular movement is intact no nystagmus is noted. Facial sensation is normal to touch throughout. The facial strength is normal throughout. Hearing is severely decreased bilaterally to hand rub. Tongue is midline and moved [id number] without any difficulty. No dysarthria is noted. Shoulder shrug is normal bila terally. Motor: The strength is 5 over 5 throughout. Normal tone and bulk. Cerebellum: Normal finger to nose heel to shannon bilaterally. Sensation: Sensation is normal to touch throughout. Reflexes (right/left): 2+ throughout. Plantars are downgoing bilaterally. Some of the workup during this hospital visit consisted of: CBC with differential is unremarkable Serum glucose is 85. Vitamin B12 is 442. Lipid panel is triglyceride 118, cholesterol 194, LDL is 109 and HDL 60 TSH is 1.50 [address]oglobin [address]c is 5.6. CT of the head is reported as mild bifrontal cerebral atrophy. No acute intracranial abnormality seen. I personally reviewed the CT and agree with the report. CT angiography of the neck is reported as widely patent vertebral and carotid artery of the neck. CT angiography of the head is reported as no large vessel intracranial arterial occlusion, significant stenosis or aneurysm changes seen. 2D echo was reported as normal left ventricular size and systolic function. Trace to mild tricuspid regurgitation with trace pulmonary regurgitation. No evidence of shunting by contrast bubble study or color study. MRI of the brain is reported as no evidence of intracranial mass or acut e/subacute infarct. Nonspecific white matter changes - Labs CBC & Chem 7: 02/24/24 17:12 02/24/24 17:12 Assessment and Plan Assessment: This is a 58-year-old gentleman who is severely hard of hearing and wears heari ng aids who presented emergency department because of 2 episode of numbness over the left tongue as well as face with some slurring of the speech to happen yesterday in the afternoon. He stated the episodes were brief. He is back to baseline. Likely transient ischemic attack. MRI Brain is unremarkable. Severely hard of hearing and is on hearing aids Plan: Patient was given aspirin 325 once in the ED then was started on aspirin 325 daily by the ED physician. Patient was not on any antiplatelet prior to this. I changed to aspirin 325 to 81 mg and I also added Plavix 75 mg daily. Patient to be on dual antiplatelet for 21 days and after 21 days stop Plavix but c ontinue aspirin indefinitely. I started the patient on Lipitor 20 mg nightly for secondary stroke prophylaxis. Continue neurochecks Cardiac monitoring. Recommend a 30 day event monitor. PT OT and AWNING HANGER SUPERVISOR are consulted For DVT prophylaxis: Patient is ambulatory and does not need anticoagulation. Will defer the rest of the medical management to primary and other specialist UPon discharge, recommend patient to follow-up with neurologist as outpatient within 2-3 weeks. There is no further neurological work-up. Time with Patient: Less than 30
== END 2024-02-26 11:50 | disposition home or self-care (01) ==
LOC: EC 16:44 → 6NMEDSUR 18:46
PROVIDERS: ADMIT Internal Medicine; ATTEND Internal Medicine
DX: R47.81 Slurred speech (principal); H91.90 Unspecified hearing loss, unspecified ear; I07.1 Rheumatic tricuspid insufficiency; R00.1 Bradycardia, unspecified; Z79.82 Long term (current) use of aspirin
CPT/HCPCS: 99291; 36415; 93005; 93306; 97161; 80061; 80053; 84443; 82607; 82550; 83735; 84484; 85025; 85610; 85730; 81003; 83036; 71046; 70496; 70450; 70498; 70551; G0378 ×3; Q9967